=== PATIENT | female | born 2000 | race Two or more races ===

== ENCOUNTER 2022-07-15 08:17 | Emergency (ER) | payer OTHER ==
[~2022-07-15] VITALS: Ht 154.9 cm; Wt 68.0 kg
[2022-07-15] MEDS ORDERED: ZOFRAN8 MG PO (14:18)
[2022-07-15] MEDS ORDERED: CIPRO500 MG PO (14:18)
== END 2022-07-15 14:19 | disposition home or self-care (01) ==
LOC: ER 08:17
DX: S06.0XAA Concussion with loss of consciousness status unknown, initial encounter (principal); W06.XXXA Fall from bed, initial encounter; Y93.89 Activity, other specified; Y92.018 Other place in single-family (private) house as the place of occurrence of the external cause